=== PATIENT | male | born 1970 | race Caucasian/White ===

== ENCOUNTER → 2016-09-24 | Outpatient (CLI) | payer OTHER ==
[~2016-09-24] MED LIST: REGADENOSON 0.4 MG/5 ML DISP.SYRIN. IV ONE
--- NOTE | 2016-09-30 18:26 | PCVCIMAG ---
APPROVED REPORT Exam: Nuclear Stress Test Indication: CAD , Abnormal EKG, Near Syncope Patient Location: Out-Patient Stress Nurse: Jordyn Abraham RN, ARTURO Leone Tech:Thea ROBERT Seo Ht: 6 ft 0 in Wt: 215 lbs BSA: 2.20 m2 HR: 63 bpm BP: 131/78 mmHg BMI: 29.1 Rhythm: SR Medical History Medical History: Hyperlipidemia, HTN, Diabetes Medications: Aspirin, atorvastatin, insulin pump, tribenzor, tramadol, carvedilol (held 24h) Allergies: No known drug allergies Cardiac Risk Factors: Age Pretest Chest Pain Characteristics: No chest pain Physical Disabilities: Knee Meds Held (24 hrs): Carvedilol NM EXAM: Myocardial Perfusion REST/STRESS Imaging Protocol: Rest Tc-99m/Stress Tc-99m 1 day Resting Data Rest SPECT myocardial perfusion imaging was performed in supine position 45 minutes following the intravenous injection of 10.4 mCi of Tc-99m Sestamibi. Time of rest injection: 829 Date: 09/24/2016 Pharmacologic Stress Pharmacologic stress test was performed by injecting Regadenoson 0.4 mg IV push followed by the intravenous injection of 33.7 mCi of Tc-99m Sestamibi. Time of stress injection: 0 Date: 09/24/2016 Administration Route: IV Administration Site: Right AC Gated Stress SPECT was performed 45 minutes after stress injection. The images were gated to evaluate regional wall motion and calculate left ventricular ejection fraction. Study Quality Study: Good Study Data Post stress, the left ventricular ejection was 73%.. SSS: 2 SRS: 0 SDS: 2 TID = 1.17. Perfusion No evidence of stress induced ischemia or prior myocardial infarction. Wall Motion Normal left ventricular size and function with no regional wall motion abnormalities. Nuclear Conclusion No evidence of stress induced ischemia or prior myocardial infarction. Normal left ventricular size and function with no regional wall motion abnormalities. Post stress, the left ventricular ejection was 73%.. No change since prior study dated January 2015. Interpreted by: Pierre Infante MD Electronically Approved: 09/24/2016 17:39:18 Stress Test Details Stress Test: Pharmacologic stress testing performed using 0.4 mg of regadenoson per 5 mL given IV over 10 seconds. Reason for pharmacologic stress test: physical limitation. HR Resting HR: 63 bpmMax Heart Rate (APMHR): 175 bpm Max HR Achieved: 90 bpmTarget HR (85% APMHR): 148 bpm % of APMHR: 51 Recovery HR: 80 bpm BP Resting BP: 131/78 mmHg Max BP: 124/76 mmHg ECG Resting ECG: Sinus rhythm Stress ECG: Sinus rhythm, Sinus Rhythm, NSSTT changes Recovery ECG: Sinus rhythm Clinical Reason for Termination: Completed protocol Stress Symptoms: Dyspnea, Chest pain Symptoms resolved during recovery with caffeine. Stress ECG Conclusion ECG: Non-ischemic <Conclusion> ECG: Non-ischemic
--- NOTE | 2016-09-30 18:26 | PCVCIMAG ---
APPROVED REPORT Study performed: 09/24/2016 07:45:31 EXAM: Comprehensive 2D, Doppler, and color-flow Echocardiogram Patient Location: Echo lab Status: routine BSA: 2.18 HR: 62 bpmBP: 130/72 mmHg Rhythm: NSR Other Information Study Quality: Good Risk Factors: Cardiac Risk Factors: HTN Indications Diabetes CAD Chest pressure 2D Dimensions LVEF(%): 53.02 (>50%) IVSd: 9.06 (7-11mm) LVDd: 46.84 mm PWd: 9.68 (7-11mm) LVDs: 34.08 (25-40mm) Left Atrium: 45.56 (27-40mm) Aortic Root: 30.20 mm LV Single Plane 4CH: 56.58 % LV Single Plane 2CH: 62.74 %Curry's LVEF: 59.66 % Biplane EF: 60.6 % Volumes Left Atrial Volume (Systole) Single Plane 4CH: 58.72 mLSingle Plane 2CH: 61.67 mL LA ESV Index: 28.00 mL/m2 Aortic Valve AoV Peak Aiden.: 1.43 m/s AO Peak Gr.: 8.22 mmHgLVOT Max P.87 mmHg LVOT Max V: 1.21 m/s Mitral Valve E/A Ratio: 1.8 MV Decel. Time: 273.43 ms MV E Max Aiden.: 0.75 m/s MV A Aiden.: 0.42 m/s IVRT: 69.20 ms TDI E/Lateral E': 7.00E/Medial E': 8.00 Pulmonary Valve PV Peak Aiden.: 1.05 m/sPV Peak Gr.: 4.38 mmHg Pulmonary Vein P Vein S: 0.38 m/sP Vein A: 0.32 m/s P Vein D: 0.66 m/sP Vein A Dur.: 124.6 msec P Vein S/D Ratio: 0.58 Tricuspid Valve TR Peak Aiden.: 2.40 m/s TR Peak Gr.: 23.02 mmHg Left Ventricle The left ventricle is normal size. There is normal LV segmental wall motion. There is normal left ventricular wall thickness. Left ventricular systolic function is normal. The left ventricular ejection fraction is within the normal range. LVEF is 60%. The left ventricular diastolic function is normal. Right Ventricle The right ventricle is normal size. The right ventricular systolic function is normal. Atria The left atrium size is normal. The right atrium size is normal. Aortic Valve The aortic valve is normal in structure. No aortic regurgitation is present. There is no aortic valvular stenosis. Mitral Valve The mitral valve is normal in structure. There is no mitral valve regurgitation noted. No evidence of mitral valve stenosis. Tricuspid Valve The tricuspid valve is normal in structure. Mild tricuspid regurgitation with PAP of 30 mmHg. Pulmonic Valve The pulmonary valve is normal in structure. There is no pulmonic valvular regurgitation. Great Vessels The aortic root is normal in size. IVC is normal in size and collapses with >50% inspiration Pericardium There is no pericardial effusion. <Conclusion> Left ventricular systolic function is normal. The left ventricular ejection fraction is within the normal range. LVEF is 60%. The right ventricle is normal size. The left atrium size is normal. The aortic valve is normal in structure. There is no mitral valve regurgitation noted. Mild tricuspid regurgitation with PAP of 30 mmHg. There is no pericardial effusion.
== END | disposition home or self-care (01) ==
LOC: PCVCIMAG 07:50
PROVIDERS: ATTEND Internal Medicine Cardiovascular Disease
DX: I25.10 Atherosclerotic heart disease of native coronary artery without angina pectoris (principal); I10 Essential (primary) hypertension; E11.9 Type 2 diabetes mellitus without complications; I07.1 Rheumatic tricuspid insufficiency; R94.31 Abnormal electrocardiogram [ECG] [EKG]; E78.5 Hyperlipidemia, unspecified
CPT/HCPCS: 78452; 93017; 93306; A9500; J2785

== ENCOUNTER → 2017-10-22 | Outpatient (CLI) | payer OTHER | END | disposition home or self-care (01) | LOC: PCVCIMAG 13:30 | PROVIDERS: ATTEND Internal Medicine Cardiovascular Disease | DX: I10 Essential (primary) hypertension (principal); E78.5 Hyperlipidemia, unspecified; E11.9 Type 2 diabetes mellitus without complications; R09.89 Other specified symptoms and signs involving the circulatory and respiratory systems | CPT/HCPCS: 93880 ==

== ENCOUNTER → 2019-01-13 | Outpatient (CLI) | payer OTHER ==
--- NOTE | 2019-01-13 14:13 | PCVCIMAG ---
APPROVED REPORT Study performed: 01/13/2019 12:32:58 EXAM: Comprehensive 2D, Doppler, and color-flow Echocardiogram Patient Location: Echo lab Room #: [id number]: routine BSA: 2.16 HR: 67 bpmBP: 100/59 mmHg Rhythm: NSR Other Information Study Quality: Good Risk Factors: Cardiac Risk Factors: HTN, DM, FHX of CAD Indications Diabetes Dyspnea Fatigue 2D Dimensions IVSd: 8.41 (7-11mm)LVOT Diam: 21.48 (18-24mm) LVDd: 49.19 mm PWd: 7.02 (7-11mm)Ascending Ao: 29.92 (22-36mm) LVDs: 35.65 (25-40mm) Left Atrium: 40.79 (27-40mm) Aortic Root: 27.86 mm LV Single Plane 4CH: 61.69 % LV Single Plane 2CH: 66.12 % Biplane EF: 64.2 % Volumes Left Atrial Volume (Systole) Single Plane 4CH: 43.68 mLSingle Plane 2CH: 56.85 mL Biplane LA Volume: 54.00 mLLA ESV Index: 25.00 mL/m2 Aortic Valve AoV Peak Aiden.: 1.40 m/s AO Peak Gr.: 7.79 mmHgLVOT Max P.16 mmHg LVOT Max V: 1.24 m/s RYLIE Vmax: 3.22 cm2 Mitral Valve E/A Ratio: 1.8 MV Decel. Time: 165.29 ms MV E Max Aiden.: 1.12 m/s MV A Aiden.: 0.61 m/s IVRT: 69.20 ms TDI E/Lateral E': 7.00E/Medial E': 9.33 Medial E' Aiden.: 0.12 m/s Lateral E' Aiden.: 0.16 m/s Pulmonary Valve PV Peak Aiden.: 1.36 m/sPV Peak Gr.: 7.43 mmHg Pulmonary Vein P Vein S: 0.54 m/sP Vein A: 0.27 m/s P Vein D: 0.66 m/sP Vein A Dur.: 76.1 msec P Vein S/D Ratio: 0.82 Tricuspid Valve TR Peak Aiden.: 2.35 m/s TR Peak Gr.: 22.13 mmHg TV Vmax: 0.62 m/sPA Pressure: 29.00 mmHg Left Ventricle The left ventricle is normal size. There is normal LV segmental wall motion. There is normal left ventricular wall thickness. Left ventricular systolic function is normal. The left ventricular ejection fraction is within the normal range. LVEF is 60-65%. The left ventricular diastolic function is normal. Right Ventricle The right ventricle is normal size. The right ventricular systolic function is normal. Atria The left atrium size is normal. The right atrium size is normal. Aortic Valve Aortic valve is trileaflet. The aortic valve is normal in structure and function. No aortic regurgitation is present. There is no aortic valvular stenosis. Mitral Valve The mitral valve is normal in structure. There is no mitral valve regurgitation noted. No evidence of mitral valve stenosis. Tricuspid Valve The tricuspid valve is normal in structure. Trace to mild tricuspid regurgitation with a PA pressure of 29 mmHg. Pulmonic Valve The pulmonary valve is normal in structure. Mild pulmonic regurgitation. Great Vessels The aortic root is normal in size. The ascending aorta is normal in size. Aortic arch is normal in caliber. IVC is normal in size and collapses >50% with inspiration. Pericardium There is no pericardial effusion. There is no pleural effusion. <Conclusion> The left ventricle is normal size. LVEF is 60-65%. The left ventricular diastolic function is normal. The right ventricle is normal size. The left atrium size is normal. Aortic valve is trileaflet. The aortic valve is normal in structure and function. There is no aortic valvular stenosis. There is no mitral valve regurgitation noted. Trace to mild tricuspid regurgitation with a PA pressure of 29 mmHg. The aortic root is normal in size. There is no pericardial effusion.
--- NOTE | 2019-01-14 12:25 | PCVCIMAG ---
APPROVED REPORT Imaging Protocol: Rest Tc-99m/Stress Tc-99m 1 day Study performed: 01/13/2019 13:20:32 Indication: Palpitations, Dyspnea, Low Exercise Tolerance Patient Location: Out-Patient Stress Nurse: Jordyn Abraham RN [place] Tech:Jairo FloresROEBRT fernandez Ht: 6 ft 0 in Wt: 206 lbs BSA: 2.16 m2 HR: 75 bpm BP: 100/59 mmHg BMI: 27.9 Rhythm: Sinus Rhythm, Incomplete Left Bundle Branch Block Medical History Medical History: Age, HTN, CVD, DM, Dyspnea, Family Hx CAD Medications: ASA, Coreg, Tribenzor, Crestor Allergies: No known drug allergies Resting Data Rest SPECT myocardial perfusion imaging was performed in supine position 45 minutes following the intravenous injection of 10.4 mCi of Tc-99m Sestamibi. Time of rest injection: 1235 Date: 01/13/2019 Administration Route: IV Administration Site: Right AC Pharmacologic Stress Pharmacologic stress test was performed by injecting Regadenoson 0.4 mg IV push over 10-15 seconds immediately followed by the intravenous injection of 31.5 mCi of Tc-99m Sestamibi. Time of stress injection: 1400 Date: 01/13/2019 Administration Route: IV Administration Site: Right AC The images were gated to evaluate regional wall motion and calculate left ventricular ejection fraction. Stress Test Details Stress Test: Pharmacologic stress testing performed using 0.4 mg of regadenoson per 5 mL given IV over 10 seconds. Reason for pharmacologic stress test: knee problems. HRMax Heart Rate (APMHR): 172 bpm Resting HR: 75 bpmTarget HR (85% APMHR): 146 bpm Max HR Achieved: 83 bpm % of APMHR: 48 Recovery HR: 76 bpm BP Resting BP: 100/59 mmHg Max BP: 111/66 mmHg Recovery BP: 104/60 mmHg ECG Resting ECG: Sinus Rhythm, Incomplete Left Bundle Branch Block Stress ECG: Sinus Rhythm, Incomplete Left Bundle Branch Block Arrhythmia: None Recovery ECG: Sinus Rhythm, Incomplete Left Bundle Branch Block Clinical Reason for Termination: Completed protocol Stress Symptoms: Headache Symptoms resolved with caffeine. Stress ECG Conclusion non diagnostic LBBB Study Quality Study: Good Study Data Post stress, the left ventricular ejection was 67%.. SSS: 0 SRS: 1 SDS: 0 TID = 1.18. Perfusion No evidence of stress induced ischemia or prior myocardial infarction. Wall Motion Normal left ventricular size and function with no regional wall motion abnormalities. Nuclear Conclusion No evidence of stress induced ischemia or prior myocardial infarction. Normal left ventricular size and function with no regional wall motion abnormalities. Post stress, the left ventricular ejection was 67%. No change since prior study dated September 2016. Interpreted by: Pierre Infante MD Electronically Approved: 01/13/2019 16:00:47 <Conclusion> non diagnostic LBBB
== END | disposition home or self-care (01) ==
LOC: PCVCIMAG 11:32
PROVIDERS: ATTEND Internal Medicine Cardiovascular Disease
DX: I36.1 Nonrheumatic tricuspid (valve) insufficiency (principal); R06.00 Dyspnea, unspecified; E11.9 Type 2 diabetes mellitus without complications; R53.83 Other fatigue
CPT/HCPCS: 78452; 93017; 93306; A9500; J2785